=== PATIENT | male | born 1950 | race Caucasian/White ===

== ENCOUNTER 2021-01-11 06:35 | Outpatient (CLI) | payer MEDICARE, SELFPAY ==
--- NOTE | ~2021-01-11 | MR_ITS ---
EXAMINATION: MR shoulder RT wo con DATE: 01/11/2021 07:51 INDICATION: Complete rotator cuff tear or rupture. Right shoulder pain. TECHNIQUE: Magnetic resonance imaging (MRI) of the right shoulder was performed without intravenous c ontrast. Sequences included axial PD-weighted FS FSE, coronal oblique PD-weighted FS FSE and T2-weigh ishaan FS FSE, and sagittal oblique T2-weighted FS FSE and T1-weighted FSE. COMPARISON: Right shoulder radiographs 01/07/2021, right shoulder MRI 01/18/2018 FINDINGS: Coracoacromial arch: The acromion undersurface is curved in morphology (type II). There is moderate osteoarthritis of acro mioclavicular joint. There is moderate subacromial/subdeltoid bursitis. Rotator cuff: There is a full-thickness tear of supraspinatus and infraspinatus tendons measuring 3.2 cm anterior t o posterior by up to 3.3 cm proximal to distal. Teres minor tendon is normal. There is an interstitia l tear of distal subscapularis tendon. There is no asymmetric fatty atrophy of the rotator cuff muscl e bellies. Biceps tendon and glenoid labrum: There is a partial tear of proximal biceps tendon, which is medially displaced partially into the sub scapularis tendon tear. There is degeneration of the superior glenoid labrum without well-defined tea r. Fluid: There is a moderate-sized glenohumeral joint effusion. Bones/cartilage: There is cartilage surface irregularity of the glenoid and humeral head. IMPRESSION: 1. Full-thickness rotator cuff tear. 2. Partial tear of proximal biceps tendon, which is medially displaced partially into the subscapular is tendon tear. 3. Mild glenohumeral joint chondrosis. 4. Moderate-sized glenohumeral joint effusion and moderate subacromial/subdeltoid bursitis. 5. Moderate acromioclavicular joint osteoarthritis. Reviewed, dictated and finalized at location A. SCREEN CUTTER IMPRESSION: 1. Full-thickness rotator cuff tear. 2. Partial tear of proximal biceps tendon, which is medially displaced partiall y into the subscapularis tendon tear. 3. Mild glenohumeral joint chondrosis. 4. Moderate-sized glenohumeral joint effusion and moderate subacromial/subdelto id bursitis. 5. Moderate acromioclavicular joint osteoarthritis.
== END 2021-01-11 06:36 | disposition home or self-care (01) ==
PROVIDERS: PCP Internal Medicine; Visit Provider Orthopaedic Surgery
DX: M75.121 Complete rotator cuff tear or rupture of right shoulder, not specified as traumatic (principal); S46.211A Strain of muscle, fascia and tendon of other parts of biceps, right arm, initial encounter; M25.411 Effusion, right shoulder; M19.011 Primary osteoarthritis, right shoulder
CPT/HCPCS: 73221

== ENCOUNTER 2022-02-24 12:56 | Emergency (ER) | payer MEDICARE, SELFPAY ==
[2022-02-24 13:30] VITALS: BP 160/82; PULSE 75; RESP 16; TEMP 36.4; O2SAT 98
--- NOTE | 2022-02-24 14:29 | ED.WOUNDLAC ---
HPI - Wound/Laceration General Chief Complaint: Skin/Abscess/Foreign Body Stated Complaint: Left Hand Pain Time Seen by Provider: 02/24/22 14:30 Source: patient, RN notes reviewed and old records reviewed Mode of arrival: ambulatory Limitations: no limitations History of Present Illness HPI narrative: [age] year old male presents to the [facility] with a laceration to the left 5th finger. Occurred over 24 hours ago when he was meal prepping. States he did not have time to go to the ER in get stitches due to all of the food he needed to prep. Reports that his tetanus shot is under 5 years old Related Data Home Medications Medication Instructions Recorded Confirmed aspirin 81 mg tablet,delayed 81 mg PO DAILY 09/23/19 02/24/22 release (Jazz Low Dose Aspirin) Allergies Allergy/AdvReac Type Severity Reaction Status Date / Time Penicillins Allergy Unknown Unknown Verified 02/24/22 13:55 Review of Systems Review of Systems: All systems reviewed & are unremarkable except as noted in HPI and below Constitutional: Constitutional: Reports no additional constitutional complaints Eyes: Eyes: Reports no additional eye complaints ENT: Reports system reviewed and no additional complaints, except as documented Cardiovascular: Cardiovascular: Reports no additional cardiovascular complaints, Denies chest pain and Denies dyspnea Respiratory: Respiratory: Reports no additional respiratory complaints, Denies chest congestion, Denies cough and Denies dyspnea Gastrointestinal: Gastrointestinal: Reports no additional gastrointestinal complaints, Denies abdominal pain, Denies nausea and Denies vomiting Musculoskeletal: Musculoskeletal: Reports no additional musculoskeletal complaints Integumentary/Breasts: Skin/Breast: Reports as per HPI Neurologic: Reports system reviewed and no additional complaints, except as documented Psychiatric: Psychiatric: Reports no additional psychiatric complaints Allergic/Immunologic: Allergic/Immunologic: Reports no additional allergic/immunologic complaints [facility] Past Medical History Medical History Diabetes Hyperlipidemia Hypertension Insomnia Rotator cuff disorder Repair Surgical History Surgical History H/O vasectomy History of repair of rotator cuff (~02/04/13) Family History Family History Mother Diabetes mellitus Lewy body disease Father Patient's father is in good health Social History Social History (Reviewed 02/24/22 @ 20:53 by CORINNE Luu Social History: Caffeine-daily Smoking status: Former smoker Smoking end date: 03/02/98 Alcohol intake: current Alcohol use details: occasionally Lack of Transportation: No Lack of Food: Never True Current Housing: I Have Housing Concerned About Future Housing: No Difficulty Paying Gas/Electric Bills: No Difficulty Paying for Meds: No Currently Unemployed: No Education: Bachelor's Degree Difficulty w/ Childcare or Family Care: No Comments At the time of my signature, I reviewed and agree with the nursing past medical, surgical, social, and family history. There is no relevant family history pertinent to the patient complaint. Exam Const: General: cooperative, healthy appearing, comfortable, no acute distress, well developed, alert and well nourished Nutritional Appearance: well nourished Orientation/consciousness: patient oriented x3 Limitations: no limitations HENMT: Head: normal to inspection Ears: hearing grossly normal bilaterally and external ears normal Face/Nose/Sinus: Normal external nose present, Normal nares present, Normal nasal mucous membranes and turbinates present and normal facial exam Face and sinus: normal facial exam Mouth: Yes Normal oral and palatal mucosa present, Yes lip normal and Yes moist mucous
== END 2022-02-24 15:33 | disposition home or self-care (01) ==
PROVIDERS: Emergency Provider Nurse Practitioner; PCP Internal Medicine
DX: S61.217A Laceration without foreign body of left little finger without damage to nail, initial encounter (principal); X58.XXXA Exposure to other specified factors, initial encounter; Y93.G3 Activity, cooking and baking; E11.9 Type 2 diabetes mellitus without complications; E78.5 Hyperlipidemia, unspecified; I10 Essential (primary) hypertension; Z98.52 Vasectomy status; Z87.891 Personal history of nicotine dependence
CPT/HCPCS: 99213; G0463

== ENCOUNTER 2022-03-12 08:56 | Outpatient (CLI) | payer MEDICARE, SELFPAY ==
[2022-03-12 18:02] LABS: Basophils Absolute Auto 0.1 K/mm3 (0.0-0.1); Basophils Percent Auto 1.4 % (0.2-1.2); Eosinophils Absolute Auto 0.4 K/mm3 (0-0.3); Eosinophils Percent Auto 4.7 % (0-4.4); Hematocrit 44.3 % (42.0-52.0); Immature Granulocyte Absolute 0.04 K/mm3 (0.00-0.031); Immature Granulocyte Percent A 0.5 % (0-0.5); Lymphocytes Absolute Auto 2.31 K/mm3 (0.9-3.2); Lymphocytes Percent Auto 30.4 % (18.3-44.2); Mean Corpuscular HGB Conc 33.9 g/dl (32-36); Mean Corpuscular Hemoglobin 31.6 pg (26-34); Mean Corpuscular Volume 93.5 fl (80-100); Mean Platelet Volume 10.8 fl (7.4-10.4); Monocytes Absolute Auto 0.7 K/mm3 (0.1-0.6); Neutrophils Absolute Auto 4.1 K/mm3 (1.3-6.7); Platelet Count Result 295 k/mm3 (150-375); Red Blood Count 4.74 M/mm3 (4.6-6.20); Red Cell Distribution Width 12.3 % (11.5-14.5); White Blood Count 7.6 K/mm3 (4.5-10.0)
[2022-03-12 18:14] LABS: Alanine Aminotransferase 25 U/L (6-50); Albumin Level 4.3 g/dL (3.5-5.1); Alkaline Phosphatase 76 U/L (38-126); Anion Gap 9 mmol/L (8-16); Aspartate Amino Transferase 31 U/L (17-59); Bilirubin,Total 0.6 mg/dL (0.2-1.3); Blood Urea Nitrogen 24 mg/dL (9-20); Calcium 9.6 mg/dL (8.4-10.2); Carbon Dioxide 30 mmol/L (22-30); Chloride 99 mmol/L (98-107); Cholesterol 160 mg/dL (0-200); Estimated Glomerular Filt Rate > 60; Glucose 157 mg/dL (65-110); HDL Direct 31 mg/dL; Potassium 4.4 mmol/L (3.4-5.0); Sodium 138 mmol/L (137-145); Triglycerides 158 mg/dL (<150)
[2022-03-12 18:25] LABS: LDL Cholesterol Direct 85 mg/dL
[2022-03-12 18:37] LABS: Prostate Specific Antigen 1.7 ng/mL (< OR = 4.0)
[2022-03-12 21:43] LABS: Hemoglobin A1C 8.3 % (<5.7)
== END 2022-03-12 08:57 | disposition home or self-care (01) ==
LOC: ANHGOSHLAB 08:58
PROVIDERS: PCP Internal Medicine; Visit Provider Nurse Practitioner
DX: E11.9 Type 2 diabetes mellitus without complications (principal); Z12.5 Encounter for screening for malignant neoplasm of prostate
CPT/HCPCS: 36415; 80053; 80061; 83036; 84153; 85025; G0103

== ENCOUNTER 2022-04-14 08:29 | Outpatient (CLI) | payer MEDICARE, SELFPAY ==
--- NOTE | 2022-04-14 08:30 | ECG_ITS ---
Measurements Intervals [place] Rate: 68 P: 39 OR: 158 QRS: 20 QRSD: 96 T: 54 QT: 370 QTc: 396 Interpretive Statements SINUS RHYTHM INCOMPLETE RIGHT BUNDLE BRANCH BLOCK [90+ ms QRS DURATION, TERMINAL R IN V1/V2, 40+ ms S IN I/aVL/V4/V5/V6] ABNORMAL ECG NO PREVIOUS ECG AVAILABLE FOR COMPARISON Electronically Signed On 04-14-2022 12:11:25 ADMINISTRATIVE NURSING SUPERVISOR by Yg Wilson M.D.
== END 2022-04-14 08:30 | disposition home or self-care (01) ==
LOC: ANHSURGERY 08:34
PROVIDERS: PCP Nurse Practitioner; Visit Provider Orthopaedic Surgery
DX: I10 Essential (primary) hypertension (principal); Z01.818 Encounter for other preprocedural examination; I45.10 Unspecified right bundle-branch block
CPT/HCPCS: 93005

== ENCOUNTER 2022-04-18 00:21 | Day surgery (SDC) | payer MEDICARE, SELFPAY ==
[2022-04-10 11:08] VITALS: BMI 30.6
--- NOTE | 2022-04-10 11:20 | PC.NURSE ---
PRE-OP INSTRUCTIONS, PLEASE READ CAREFULLY Report to the Outpatient Waiting Room, entrance under the green pavilion located off [facility], at time _1000_ on date _04/18/22_. Planned Procedure Time: _1200_. Time changes happen often and if your time is changed the preop area will call you the afternoon before. - You and your visitor will be asked to self-screen and do not enter if you have any COVID symptoms. - Only one visitor is requested with a max of two and NO children visitors are allowed at this time. - The patient visitor may be requested to leave or wait in car when not with patient due to distancing restrictions. - A mask is optional within the hospital at this time. Patients may have clear liquids (water, carbonated beverages, clear teas, apple juice) until 3 hours prior to surgery (1000 AM) with a maximum of 20 ounces. - No food from midnight until time of surgery Take the following medications with a SIP of water the morning of surgery: _NONE_ DO NOT STOP ANY OF YOUR OTHER PRESCRIPTION MEDICATIONS PRIOR TO SURGERY ?EXCEPT THE FOLLOWING Medications to discontinue per DR. PICKERING - _ASPIRIN 7 DAYS PRIOR TO SURGERY, Date to take last dose 04/10/22_ Please no make-up, nail [place], hairspray, perfume, deodorant, or body powder the day of surgery. No jewelry (including any body piercings) or valuables the day of surgery, leave them at home. Please take a shower or bath the night before, or the morning of, surgery with an antibacterial soap. Wear comfortable, loose fitting clothing. - Jewelry must be removed prior to entering the operating room. Rings and piercings that are not removed may be cut off. - The hospital will not accept responsibility for valuables. - Please leave all valuables, including medications, at home the day of surgery. If you are going home after surgery, a licensed route driver must drive you home. - NO public transportation without another adult if you receive anesthesia. - We recommend that an adult stay with you for 24 hours following discharge. - We also recommend that you do not drive, make important decision, drink alcoholic beverages, or take any drugs that were not prescribed by your health care provider for at least 24 hours after your discharge time. Follow any additional instructions given to you from your surgeon. If you or anyone in your household have experienced Covid symptoms in the past week, please notify your surgeon or the nurse liaison at the phone number below for possible testing. Telephone instructions given to __PATIENT__and asked if any additional questions and then verbalized understanding. Patient advised to call surgeon office or pre surgery nurse liaison [phone] if any additional questions.
[2022-04-18] VITALS (10 sets, daily range): BP systolic 102–158; BP diastolic 58–78; PULSE 58–70; RESP 15–19; TEMP 36.2–36.4; O2SAT 91–99
[2022-04-18] MEDS: ACETAMINOPHEN 500 MG TABLET 1000 MG PO (10:20)
[2022-04-18] MEDS: LACTATED RINGERS 1,000 ML 30 ML IV CONT ×2 (10:33→14:40)
[2022-04-18] MEDS: KETOROLAC 15 MG/ML VIAL (*BKC) IV PUSH (10:35)
[2022-04-18 10:38] LABS: Glucose Point of Care 178 mg/dl (65-105)
--- NOTE | 2022-04-18 11:48 | WPDHPUPDATE1 ---
History and Physical Update Update Date/Time: 04/18/22 11:48 History and Physical has been reviewed, including an updated exam of the patient. There are NO changes in the patient's condition. Risks, benefits, and alternatives have been discussed and questions answered. Patient agrees to proceed with procedure.
--- NOTE | 2022-04-18 11:53 | WPDANESEPPF ---
Anes - Initial Pre Proc Eval Procedure: Operation Date: 04/18/22 12:00 Proposed Procedures p Arthroscopic Rotator Cuff Repair Right Shoulder with Subacromial Decompression - Garrett Romero MD Date/Time: 04/18/22 11:53 Surgeon: Garrett Romero MD Pre Op Diagnosis: rotator cuff tear right shoulder Patient Data Age: 71 Gender: M Height: 1.7 m Weight: 92.3 kg Last Vital Signs Temp 36.2 C L 04/18/22 10:00 Pulse 70 04/18/22 10:00 Resp 16 04/18/22 10:00 BP 158/76 H 04/18/22 10:00 Pulse Ox 99 04/18/22 10:00 O2 Del Method Room Air 04/18/22 10:00 Allergies Allergy/AdvReac Type Severity Reaction Status Date / Time Penicillins Allergy Unknown Unknown-SISTER Verified 04/18/22 10:16 WITH CERAMIC TILE INSTALLATION HELPER REACTON TO [facility] Home Medications Medication Instructions Recorded Confirmed Type aspirin 81 mg tablet,delayed 81 mg PO DAILY 09/23/19 04/10/22 History release (Jazz Low Dose Aspirin) blood sugar diagnostic (OneTouch #100 ea 05/03/21 04/10/22 Rx Verio test strips) blood-glucose meter (OneTouch #1 ea 05/03/21 04/10/22 Rx Verio Flex Meter) losartan 100 mg tablet 100 mg PO DAILY #90 tabs 05/07/21 04/18/22 Rx sildenafil (pulm.hypertension) 20 20 mg PO DAILY PRN sexual activity 06/14/21 04/10/22 Rx mg tablet #30 tabs sitagliptin phosphate 100 mg See Rx Instructions .Route 10/29/21 04/18/22 Rx tablet (Januvia) .COMPLEX #90 tabs atorvastatin 20 mg tablet See Rx Instructions .Route 10/31/21 04/18/22 Rx .COMPLEX #90 tabs hydrochlorothiazide 12.5 mg tablet See Rx Instructions .Route 12/09/21 04/18/22 Rx .COMPLEX #90 tabs metformin 500 mg tablet See Rx Instructions .Route 12/23/21 04/18/22 Rx .COMPLEX #360 tabs diphenhydramine 25 1 tablet PO QHS PRN Pain 03/12/22 04/18/22 History mg-acetaminophen 500 mg tablet (Tylenol PM Extra Strength) dulaglutide 1.5 mg/0.5 mL 1.5 mg (0.5 mL) subcut WEEKLY #2 mL 03/13/22 04/18/22 Rx subcutaneous pen injector (Trulicity) zolpidem 5 mg tablet 5 mg PO DAILY PRN insomnia #30 tabs 03/14/22 04/18/22 Rx Laboratory Tests 04/18/22 10:32 POC Capillary Glucose 178 mg/dl H mg/dl (65-105) ECG: Date of Service: 04/14/22 Procedure(s): CA 12 lead EKG Accession Number(s): [id number] cc: ~ ? Measurements Intervals? [place]? Rate: ? 68 ? P:? 39 ID: ? 158? QRS:? 20 QRSD: ? 96 ? T:? 54 QT: ? 370? QTc:? 396? Interpretive Statements SINUS RHYTHM INCOMPLETE RIGHT BUNDLE BRANCH BLOCK [90+ ms QRS DURATION, TERMINAL R IN V1/V2, 40+ ms S IN I/aVL/V4/V5/V6] ABNORMAL ECG NO PREVIOUS ECG AVAILABLE FOR COMPARISON Electronically Signed On 04-14-2022 12:11:25 CULLET TRUCKER by gY Wilson M.D. Patient hx anesthesia problems: none Family hx anesthesia problems: none Results Review: All pre-operative results and documents have been reviewed as part of the pre-operative evaluation. [facility] Past Medical History Medical History Diabetes Hyperlipidemia Hypertension Insomnia Rotator cuff disorder Repair Surgical History Surgical History H/O vasectomy History of repair of rotator cuff (~02/04/13) Family History Family History Mother Diabetes mellitus Lewy body disease Father Patient's father is in good health Social History Social History Social History: Caffeine-daily Smoking packs per day: 1.5 Smoking cigarettes per day: 30.0 Years smoked: 20 Smoking pack-years: 30.00 Gabriela
--- NOTE | 2022-04-18 12:01 | WPDANESPNB ---
Anes - Peripheral Nerve Block Date/Time: 04/18/22 12:01 I have discussed with the patient/family/POA the placement of a peripheral nerve block for post-operative pain management, including associated risks, benefits, complications, and side effects. Alternative methods of post-operative analgesia were detailed. Questions were solicited and answers provided to the satisfaction of the patient/family/POA. Time-Out: A pre-procedural Time-Out was completed immediately before starting the procedure and confirmed: Patient Identification, Site, Procedure, Patient Position and the Availability of Requisite Equipment. Clinical Indications: Acute post-operative pain management requested by the operative surgeon. Nerve Block Insertion Note Anes-nerve block: supraclavicular right Patient position: supine Skin prep: chlorhexidine Needle: 22 gauge, stimulating, insulated echogenic needle. Needle length: 80 mm Technique: ultrasound (in plane) Injectate: bupivacaine 0.25% with epi 5 mcg/ml (20cc) Observations: tolerated well Complications: none Procedure start time:: 1205 Procedure end time:: 1210
[2022-04-18] MEDS: ceFAZolin 2 GM/D5W 50 ML 2 GM/50 ML BAG IVPB (12:17)
[2022-04-18 15:15] LABS: Glucose Point of Care 210 mg/dl (65-105)
--- NOTE | 2022-04-18 16:02 | W.PM.PROC2 ---
Procedure Note - Detailed Date of Procedure 04/18/22 Pre-op Diagnosis Rotator cuff tear right shoulder Post-op Diagnosis Other (1. Massive rotator cuff tear right shoulder 2. Subacromial impingement 3. Biceps tendinosis 4. Degenerative labral tear) Procedure Performed Right shoulder 1. Arthroscopic rotator cuff repair 2. Arthroscopic subacromial decompression 3. Arthroscopic biceps tenodesis 4. Arthroscopic labral debridement Surgeon Garrett Romero MD Anesthesia General and Regional ( interscalene block) Findings Massive retracted supraspinatus and infraspinatus tear. Low-grade upper border subscapularis tear. Biceps tendinosis with partial rupture. Partial rotator cuff repair accomplished; with the subscapularis and infraspinatus repaired. The supraspinatus was scarred and severely retracted with almost no mobility, despite releases. The posterior rotator cuff infraspinatus was only minimally mobile but it was possible to return to the posterior tuberosity and be repaired. Two suture anchors and 3 sutures created a nice posterior cuff repair. One suture anchor was used to repair the upper subscapularis with the horizontal mattress suture and to tenodesis the biceps tendon with the loop and tack system. Description of Procedure Preoperative antibiotics were given. An interscalene block was administered in the preoperative area. The patient was bought brought to the operating room. A general anesthetic was administered. The patient was carefully positioned in the beach chair position. The head and neck were carefully positioned. The non operative extremity was also carefully positioned. The shoulder was prepped and draped in the usual sterile fashion. Examination was performed. Standard posterior and anterior arthroscopic portals were established. Inflow achieved with the arthroscopic pump using saline and epinephrine. The glenohumeral joint was carefully inspected. Glenohumeral cartilage was good. There was extensive fraying of the anterior labrum. This was debrided. A large retracted rotator cuff tear was identified. The subscapularis was significantly torn with some splitting of the fibers. Only the upper subscapularis was involved. Biceps was partially ruptured and flattened with significant splitting of the fibers. It was elected to proceed with repair of the upper subscapularis and the biceps tenodesis with a suture anchor. Horizontal mattress for the subscapularis and the loop intact with the biceps. The biceps was released from the superior labrum. Attention was turned to the subacromial space. A complete bursectomy was performed. The rotator cuff and footprint were lightly debrided. The tear was assessed. It was very large and severely retracted despite significant releases the tear did not reduce. Due to the anterior tissues being slung together quite nicely at the subscapularis and biceps area. It did not appear that an interval slide would reliably mobilize the supraspinatus. It was elected to perform a partial repair of the posterior rotator cuff at the infraspinatus which mobilized better and laid back down over the tuberosity nicely. Only a modest acromioplasty was performed with simply flattening of the rough areas and tapering the undersurface of the acromion nicely. The CA ligament was left intact. A corkscrew 4 points I have been 5 mm anchor was placed at the tuberosity followed by a 5.5 mm anchor. Two suture tapes were placed at the most posterolateral anchor and the 2nd anchor a single suture tape was placed. These were passed in an antegrade fashion. The sutures were tied arthroscopically. The arthroscopic instruments were removed. The wounds were closed with 3-0 Monocryl subcuticular suture and steri strips. There were no complications. A sling was applied and the patient brought to the recovery room. Implants Arthrex SwiveLock 4.75 mm anchor anterior. Corkscrew 4.75 and 5.5 posterior. Estimated Blood
== END 2022-04-18 16:45 | disposition home or self-care (01) ==
PROVIDERS: PCP Nurse Practitioner; Visit Provider Orthopaedic Surgery
PROC: (CPT 29805; principal; 2022-04-18 12:00)
DX: S46.011A Strain of muscle(s) and tendon(s) of the rotator cuff of right shoulder, initial encounter (principal); M75.21 Bicipital tendinitis, right shoulder; M75.41 Impingement syndrome of right shoulder; M75.81 Other shoulder lesions, right shoulder; W01.0XXA Fall on same level from slipping, tripping and stumbling without subsequent striking against object, initial encounter; G89.18 Other acute postprocedural pain; E11.9 Type 2 diabetes mellitus without complications; E78.5 Hyperlipidemia, unspecified; I10 Essential (primary) hypertension; G47.00 Insomnia, unspecified; Z79.82 Long term (current) use of aspirin; Z79.84 Long term (current) use of oral hypoglycemic drugs; Z79.899 Other long term (current) drug therapy; Z87.891 Personal history of nicotine dependence; E66.9 Obesity, unspecified; Z68.31 Body mass index [BMI] 31.0-31.9, adult
CPT/HCPCS: 29827; 29828; 29826; 64415; 82948; A4565; A9270; C1713; J0330; J0690; J1100; J1885; J2250; J2405; J2704; J2710; J3010; J7120

== ENCOUNTER 2022-05-13 08:32 | Outpatient (CLI) | payer MEDICARE, SELFPAY ==
[2022-05-13 20:44] LABS: Hemoglobin A1C 7.5 % (<5.7)
== END 2022-05-13 08:33 | disposition home or self-care (01) ==
LOC: ANHGOSHLAB 08:33
PROVIDERS: PCP Nurse Practitioner; Visit Provider Nurse Practitioner
DX: E11.9 Type 2 diabetes mellitus without complications (principal)
CPT/HCPCS: 36415; 83036

== ENCOUNTER 2022-11-07 08:07 | Outpatient (CLI) | payer MEDICARE, SELFPAY ==
[2022-11-07 13:15] LABS: Hemoglobin A1C 7.4 % (<5.7)
== END 2022-11-07 08:08 | disposition home or self-care (01) ==
PROVIDERS: PCP Internal Medicine; Visit Provider Nurse Practitioner
DX: E11.9 Type 2 diabetes mellitus without complications (principal)
CPT/HCPCS: 36415; 83036

== ENCOUNTER 2023-04-13 08:30 | Outpatient (CLI) | payer MEDICARE, SELFPAY ==
[2023-04-13 19:12] LABS: Basophils Absolute Auto 0.1 K/mm3 (0.0-0.1); Basophils Percent Auto 1.1 % (0.2-1.2); Eosinophils Absolute Auto 0.5 K/mm3 (0-0.3); Eosinophils Percent Auto 5.4 % (0-4.4); Hematocrit 40.7 % (42.0-52.0); Hemoglobin 13.9 g/dL (14.0-18.0); Immature Granulocyte Absolute 0.12 K/mm3 (0.00-0.031); Immature Granulocyte Percent A 1.3 % (0-0.5); Lymphocytes Percent Auto 25.8 % (18.3-44.2); Mean Corpuscular HGB Conc 34.2 g/dl (32-36); Mean Corpuscular Hemoglobin 31.5 pg (26-34); Mean Corpuscular Volume 92.3 fl (80-100); Mean Platelet Volume 10.7 fl (7.4-10.4); Monocytes Absolute Auto 0.8 K/mm3 (0.1-0.6); Monocytes Percent Auto 8.9 % (2.6-8.5); Neutrophils Absolute Auto 5.1 K/mm3 (1.3-6.7); Neutrophils Percent Auto 57.5 % (45.5-73.1); Platelet Count Result 301 k/mm3 (150-375); Red Blood Count 4.41 M/mm3 (4.6-6.20); Red Cell Distribution Width 11.9 % (11.5-14.5); White Blood Count 8.9 K/mm3 (4.5-10.0)
[2023-04-13 20:51] LABS: Creatinine Urine 165.2 mg/dL
[2023-04-13 20:58] LABS: MALB Creatinine Ratio 22.7 mg/g (0-30); Microalbumin Urine Random 37.5 mg/L (0-16.7)
[2023-04-13 21:04] LABS: Alanine Aminotransferase 30 U/L (6-50); Albumin Level 3.7 g/dL (3.5-5.1); Alkaline Phosphatase 107 U/L (38-126); Anion Gap 5 mmol/L (8-16); Aspartate Amino Transferase 34 U/L (17-59); Bilirubin,Total 0.4 mg/dL (0.2-1.3); Blood Urea Nitrogen 16 mg/dL (9-20); Calcium 9.5 mg/dL (8.4-10.2); Carbon Dioxide 28 mmol/L (22-30); Chloride 101 mmol/L (98-107); Estimated Glomerular Filt Rate > 60; Glucose 214 mg/dL (65-110); Potassium 4.5 mmol/L (3.4-5.0); Sodium 134 mmol/L (137-145)
[2023-04-13 21:08] LABS: Prostate Specific Antigen 1.7 ng/mL (< OR = 4.0)
[2023-04-13 21:33] LABS: Hemoglobin A1C 8.8 % (<5.7)
== END 2023-04-13 08:31 | disposition home or self-care (01) ==
PROVIDERS: Nurse Practitioner; PCP Internal Medicine; Visit Provider Clinical Nurse Specialist
DX: E11.9 Type 2 diabetes mellitus without complications (principal); Z12.5 Encounter for screening for malignant neoplasm of prostate
CPT/HCPCS: 36415; 80053; 82043; 82607; 83036; 84153; 85025; G0103

== ENCOUNTER 2023-08-13 08:13 | Outpatient (CLI) | payer MEDICARE, SELFPAY ==
[2023-08-13 14:31] LABS: Basophils Absolute Auto 0.1 K/mm3 (0.0-0.1); Basophils Percent Auto 0.9 % (0.2-1.2); Eosinophils Absolute Auto 0.3 K/mm3 (0-0.3); Eosinophils Percent Auto 3.3 % (0-4.4); Hemoglobin 14.1 g/dL (14.0-18.0); Immature Granulocyte Absolute 0.06 K/mm3 (0.00-0.031); Immature Granulocyte Percent A 0.7 % (0-0.5); Lymphocytes Absolute Auto 2.13 K/mm3 (0.9-3.2); Lymphocytes Percent Auto 23.3 % (18.3-44.2); Mean Corpuscular HGB Conc 32.8 g/dl (32-36); Mean Corpuscular Hemoglobin 31.1 pg (26-34); Mean Corpuscular Volume 94.7 fl (80-100); Mean Platelet Volume 11.1 fl (7.4-10.4); Monocytes Percent Auto 10.6 % (2.6-8.5); Neutrophils Absolute Auto 5.6 K/mm3 (1.3-6.7); Neutrophils Percent Auto 61.2 % (45.5-73.1); Platelet Count Result 249 k/mm3 (150-375); Red Blood Count 4.54 M/mm3 (4.6-6.20); Red Cell Distribution Width 12.1 % (11.5-14.5); White Blood Count 9.1 K/mm3 (4.5-10.0)
[2023-08-13 16:09] LABS: Iron 117 ug/dL (49-181)
[2023-08-13 16:26] LABS: Percent Iron Saturation 34 % (20-50)
[2023-08-13 16:31] LABS: Alanine Aminotransferase 17 U/L (6-50); Albumin Level 4.5 g/dL (3.5-5.1); Alkaline Phosphatase 78 U/L (38-126); Anion Gap 9 mmol/L (4-12); Aspartate Amino Transferase 51 U/L (17-59); Bilirubin,Total 0.8 mg/dL (0.2-1.3); Blood Urea Nitrogen 23 mg/dL (9-20); Calcium 9.9 mg/dL (8.4-10.2); Carbon Dioxide 27 mmol/L (22-30); Chloride 101 mmol/L (98-107); Cholesterol 113 mg/dL (0-200); Estimated Glomerular Filt Rate > 60; Glucose 149 mg/dL (65-110); HDL Direct 29 mg/dL; Sodium 137 mmol/L (137-145); Triglycerides 99 mg/dL (<150)
[2023-08-13 16:42] LABS: LDL Cholesterol Direct 68 mg/dL
== END 2023-08-13 08:14 | disposition home or self-care (01) ==
PROVIDERS: PCP Internal Medicine; Visit Provider Nurse Practitioner
DX: D64.9 Anemia, unspecified (principal); E11.9 Type 2 diabetes mellitus without complications
CPT/HCPCS: 36415; 80053; 80061; 82728; 83036; 83540; 83550; 85025

== ENCOUNTER 2024-02-17 08:26 | Outpatient (CLI) | payer MEDICARE, SELFPAY ==
[2024-02-17 19:05] LABS: Alanine Aminotransferase 15 U/L (6-50); Albumin Level 3.9 g/dL (3.5-5.1); Alkaline Phosphatase 91 U/L (38-126); Anion Gap 5 mmol/L (4-12); Aspartate Amino Transferase 33 U/L (17-59); Bilirubin,Total 0.6 mg/dL (0.2-1.3); Blood Urea Nitrogen 15 mg/dL (9-20); Calcium 9.3 mg/dL (8.4-10.2); Carbon Dioxide 28 mmol/L (22-30); Chloride 101 mmol/L (98-107); Estimated Glomerular Filt Rate > 60; Glucose 204 mg/dL (65-110); Sodium 134 mmol/L (137-145)
[2024-02-17 20:55] LABS: Hemoglobin A1C 8.9 % (<5.7)
[2024-02-17 21:48] LABS: Prostate Specific Antigen 1.4 ng/mL (< OR = 4.0)
== END 2024-02-17 08:27 | disposition home or self-care (01) ==
LOC: ANHGOSHLAB 08:28
PROVIDERS: PCP Internal Medicine; Visit Provider Nurse Practitioner
DX: E11.9 Type 2 diabetes mellitus without complications (principal); Z12.5 Encounter for screening for malignant neoplasm of prostate
CPT/HCPCS: 36415; 80053; 83036; 84153; G0103

== ENCOUNTER 2024-07-11 08:55 | Outpatient (CLI) | payer MEDICARE, SELFPAY ==
--- OUTSIDE RECORDS SUMMARY | 2024-07-11 09:04 | XMS_ITS | Encounter Summary ---
Author Organization [facility] Address [address] [place] [address] Care Team Providers Care Broadcaster Name Role Phone Hero Monroy DO Primary Care Provider Encounter Details Date Type Department Care Team (Late st Contact Info) Description 02/27/2022 Telephone [facility] [address] [place] [address], [place] [id number] Ramez Andre MD [address] [place] [address] [address] [place] [address] Social History Tobacco Use Types Packs/Day Years Used Date Smoking Tobacco: Former Cigarettes Q uit: 01/30/1999 Smokeless Tobacco: Never Alcohol Use Standard Drinks/Week Comments Yes 0 (1 standard drink = 0.6 oz pur e alcohol) Sex and Gender Information Value Date Recorded Sex Assigned at Not on file Legal Sex Male 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 Gender Identity Not on file Sexual Orientation Not on file documented as of this encounter Miscellaneous Notes * Telephone Encounter - Gris Maxwell - 02/27/2022 10:15 AM CST Current Provider name: [facility] Reason for call: PT STATES THAT THE BUMP ON HIS SCALP DIDN'T GO AWAY AFTER FREEZING IT AND WANTS TOKNOW DOES HE HAVE TO COME IN TO GET IT CHECKED OUT Patient Call Back number: [phone] HAUL YOUTH SUPERVISOR documented in this encounter Plan of Treatment Upcoming Encounters Date Type Department Care Team (Late st Contact Info) Description 08/09/2024 1:00 PM CDT Office Visit [facility] [address] [facility], [place] [id number] Dannie Ny PA-C [address] [place] [id number] documented as of this encounter Visit Diagnoses Not on filedocumented in this encounter Care Teams Broadcaster Relationship Specialty Start Date End Date Hero Monroy DO PCP - General 10/04/15 documented as of this encounter
--- OUTSIDE RECORDS SUMMARY | 2024-07-11 09:04 | XMS_ITS | Continuity of Care Document ---
Author Organization [facility] Address [address] [place] [address] [address] [facility] [address] [place] [address] Phone Care Team Providers Care Senior Ruby Developer Name Role Phone Mccarty OD, Ole Unavailable Unavailable Advance Directives Directive Yes / No Effective Date File Name No Information Encounters Encounter Description Practice Location Reason(s) For Visit Diagnoses Date Provider Providers Copied on Encounter [facility], [address], [place], [place], [id number], [place] tel:[phone] [facility] No Information 4-200 5 Mccarty OD Ole. [address] , [address], [place], [address], [place]. tel:[phone] Family History Family Member Type Diagnosis Age At Onset No Information Payers Payer name Insurance type Covered republican ID Authoriza tion(s) No Information Social History Type Description Quantity Date Captured Comments Sex Male Smoking Status No Information Chief Complaint And Reason For Visit No Information Reason For Referral Reason For Referral No Information History Of Present Illness Encounter Date Complaint History Of Prese nt Illness No Information Functional Status Date Functional Assessmen t No Information Instructions Date Instruction Additional Infor mation No Information Assessments Type Assessment Date No Information Patient Care Teams Name Effective Dates (start - stop) Status Members No Information
--- OUTSIDE RECORDS SUMMARY | 2024-07-11 09:04 | XMS_ITS | Clinical Summary ---
Author Organization [facility] Your Office Agent Address [address] [facility] [place] [address] Care Team Providers Care Battery Tester And Repairer Name Role Phone Hero Monroy DO Primary Care Provider Source Comments [facility],non-owned Affiliates and Associated Physician Practices is amultiple site organization consisting of ambulatory clinics and hospital sitesin [place], [place], [place] and [place]. This disclosure is being madepursuant to the Care Everywhere program and may not contain all information available regarding this patient. Last updated 17.[facility] Your Office Agent Allergies Active Allergy Reactions Criticality Noted Date Comments Penicillins Other Low 01/18/2016 May have problems Medications * Be aware that medications may not be up to date on this document. Alwaysverify current medications with the patient. hydroCHLOROthia zide (HYDRODIURIL) 25 MG tablet Take 1 (one) tablet by mouth once daily 3 12/05/2015 Active SITagliptin (JANUVIA) 100 MG tablet Take 1 (one) tablet by mouth once daily 3 12/05/2015 Active metFORMIN (GLUCOPHAGE) 500 MG tablet 1 (one) tablet 2 times daily with morning and evening meal 2 11/01/2015 Active losartan (COZAAR) 100 MG tablet Take 1 (one) tablet by mouth once daily 02/13/2019 Active atorvastatin (LIPITOR) 20 MG tablet Take 1 (one) tablet by mouth once daily 12/26/2019 Active sildenafil (REVATIO) 20 MG tablet TAKE 1 TO 3 TABLETS BY MOUTH NEEDED 30 MINUTES BEFORE SEXUAL ACTIVITY. MAX 5 TABLETS DAILY. 06/14/2020 Active zolpidem (AMBIEN) 5 MG tablet TAKE 1 TABLET BY MOUTH DAILY NEEDED FOR INSOMNIA 02/16/2021 Active hydroCHLOROthia zide 12.5 MG Take 1 (one) tablet by mouth once daily 09/08/2023 Active Rybelsus 14 MG tablet 04/02/2023 Active fluorouracil (Efudex) 5 % creamIndication s:Actinic keratosis Apply to frontal scalp, forehead twice daily for two weeks. Apply Aquaphor or Vaseline 15-20 minutes after use. 40 g 02/16/2024 Active Active Problems Problem Noted Date Diagnosed Date Multiple benign melanocytic nevi of upper extremity, lower extremity, and trunk 02/17/2020 Melanocytic nevi of trunk 01/18/2016 Actinic keratosis 01/18/2016 Seborrheic keratoses, inflamed 01/18/2016 Solar lentiginosis 01/18/2016 Immunizations Immunization Administration Dates Next Due INFLUENZA VACCINE 11/18/2021,,11/19/2018,2017 INFLUENZA VACCINE, HIGH-DOSE , QUADR. (FLUZONE HIGH-DOSE QUADRIVALENT; 65Y+), 0.7 ML (HD-IIV4) 01/18/2020,11/18/2018 Zoster Hzv Vacc Recombinant Inj Im 04/05/2018 Family History Medical History Relation Name Comments CVA Neg Hx Cancer - Breast Neg Hx Cancer - Other Neg Hx Cancer - Skin, Melanoma Neg Hx Cancer - Skin, Non Melanoma Neg Hx Eczema Neg Hx Hemophilia Neg Hx Psoriasis Neg Hx Social History Tobacco Use Types Packs/Day Years Used Date Smoking Tobacco: Former Cigarettes Q uit: 01/30/1999 Smokeless Tobacco: Never Alcohol Use Standard Drinks/Week Comments Yes 0 (1 standard drink = 0.6 oz pur e alcohol) Sex and Gender Information Value Date Recorded Sex Assigned at Not on file Legal Sex Male 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 Gender Identity Not on file Sexual Orientation Not on file Plan of Treatment Upcoming Encounters Date Type Department Care Team (Late st Contact Info) Description 08/09/2024 1:00 PM CDT Office Visit [facility] - Dermatology [address] [facility] [place] [phone] Dannie Ny, PAKarlC [address] [place] [phone] Health Maintenance Due Date Last Done Comments COLOGUARD (AGES 45-75) - COLON CA SCREENING 1950 COLON MONITORING 1950 COLONOSCOPY - COLON CA SCREENING 1950 CT COLONOGRAPHY - COLON CA SCREENING 1950 Colorectal Cancer Screening 1950 FIT - COLON CA SCREENING 1950 FLEX SIG - COLON CA SCREENING 1950 MEDICARE AWV 12 MONTHS 1950 HEPATITIS C SCREENING 05/20/1968 DTAP/TDAP/TD VACCINES (1 - Tdap) 1969 PNEUMOCOCCAL VACCINE 50+ (1 of 1 - PCV) 2000 AAA SCREENING 05/26/2015 ZOSTER VACCINE (2 of 2) 05/31/2018 04/05/2018 COVID-19 VACCINE (1 - season) 2023 DEPRESSION SCREENING 03/02/2024 INFLUENZA VACCINE (Season Ended) 2024 11/18/2021, 11/24/2020, 01/18/2020, Additional history exists Respiratory Syncytial Virus (RSV) Vaccine Pt: or over 60 yrs (1 - 1-dose 75+ series) 2025 HEPATITIS B VACCINE Aged Out No longe r eligible based on patient's age to complete this topic HIB VACCINE Aged Out No longer eligi ble based on patient's age to complete this topic HPV VACCINE Aged Out No longer eligi ble based on patient's age to complete this topic MENINGOCOCCAL (Group B) VACCINE SHARED DECISION-MAKING Aged Out No longer eligible based on patient's age to complete this topic MENINGOCOCCAL GROUPS A/C/Y/W VACCINE Aged Out No longer eligible based on patient's age to complete this topic Insurance JO[facility] MEDICARE Care Teams Battery Tester And Repairer Relationship Specialty Start Date End Date Hero Monroy DO PCP - General 10/04/15
[2024-07-11 22:13] LABS: Hemoglobin A1C 9.7 % (<5.7)
== END 2024-07-11 08:56 | disposition home or self-care (01) ==
PROVIDERS: PCP Internal Medicine; Visit Provider Nurse Practitioner
DX: E11.9 Type 2 diabetes mellitus without complications (principal)
CPT/HCPCS: 36415; 83036

== ENCOUNTER 2024-11-03 08:56 | Outpatient (CLI) | payer MEDICARE, SELFPAY ==
--- OUTSIDE RECORDS SUMMARY | 2024-11-03 09:10 | XMS_ITS | Encounter Summary ---
Author Organization [facility] Address [address] [facility] [place] [address] Care Team Providers Care Chute Operator Name Role Phone Hero Monroy DO Primary Care Provider Encounter Details Date Type Department Care Team (Late st Contact Info) Description 02/27/2022 Telephone [facility] [address] [place] [address], [place] [phone] Ramez Andre MD [address] [place] [address] [address] [place] [address] Social History Tobacco Use Types Packs/Day Years Used Date Smoking Tobacco: Former Cigarettes Q uit: 01/30/1999 Smokeless Tobacco: Never Alcohol Use Standard Drinks/Week Comments Yes 0 (1 standard drink = 0.6 oz pur e alcohol) Sex and Gender Information Value Date Recorded Sex Assigned at Not on file 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 Gender Identity Not on file Sexual Orientation [...] IT CHECKED OUT Patient Call Back number: [phone] EYOR FEEDER OFFBEARER documented in this encounter Plan of Treatment Upcoming Encounters Date Type Department Care Team (Late st Contact Info) Description 02/14/2025 1:00 PM CONVEYOR FEEDER OFFBEARER Office Visit [facility] - Dermatology [address] [facility] [place] [phone] Dannie Ny PARomán [address] [place] [phone] documented as of this encounter Visit Diagnoses Not on filedocumented in this encounter Care Teams Chute Operator Relationship Specialty Start Date End Date Hero Monroy DO PCP - General 10/04/15 documented as of this encounter
--- OUTSIDE RECORDS SUMMARY | 2024-11-03 09:10 | XMS_ITS | Clinical Summary ---
Author Organization [facility] [employer] Address [address] [facility] [place] [address] Care Team Providers Care Ink Grinder Name Role Phone Hero Monroy DO Primary Care Provider [phone] Source Comments [facility],non-owned Affiliates and Associated Physician Practices is amultiple site organization consisting of ambulatory clinics and hospital sitesin [place], [place], [place] and [place]. This disclosure is being madepursuant to the Care Everywhere program and may not contain all information available regarding this patient. Last updated 17.[facility] [employer] Allergies Active Allergy Reactions Criticality Noted Date Comments Penicillins Other Low 01/18/2016 May have problems Medications * Be aware that medications may not be up to date on this document. Alwaysverify current medications with the patient. SITagliptin (JANUVIA) 100 MG tablet Take 1 [...] tablet by mouth once daily 09/08/2023 Active fluorouracil (Efudex) 5 % creamIndication s:Actinic keratosis Apply to frontal scalp, forehead twice daily for two weeks. Apply Aquaphor or Vaseline 15-20 minutes after use. 40 g 02/16/2024 Active Semaglutide (OZEMPIC, 0.25 OR 0.5 MG/DOSE, SC) 07/14/2024 Active traMADol (Ultram) 50 MG tablet Take 1 (one) tablet by mouth every 6 hours as needed pain 08/01/2024 Active Active Problems Problem Noted Date Diagnosed Date Multiple benign melanocytic nevi of upper extremity, lower extremity, and trunk 02/17/2020 Melanocytic nevi of trunk 01/18/2016 Actinic keratosis 01/18/2016 Seborrheic keratoses, inflamed 01/18/2016 Solar lentiginosis 01/18/2016 Encounters Date Type Department Care Team Description 08/09/2024 1:00 PM CDT Office Visit [facility] - Dermatology [address] [place] [phone] Dannie Ny, PARomán Actinic keratosis (Primary Dx); Lentigines; Melanocytic nevi of trunk; Seborrheic keratoses; Hx of nonmelanoma skin cancer 08/09/2024 Travel from Last 3 Months Immunizations Immunization Administration Dates Next Due INFLUENZA [...] on file 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 Gender Identity Not on file Sexual Orientation Not on file Plan of Treatment Upcoming Encounters Date Type Department Care Team (Niki st Contact Info) Description 02/14/2025 1:00 PM SINGLE POINTED OPERATOR Office Visit [facility] - Dermatology [address] [facility] [place] [address] Dannie Ny, PAKarlC [address] [place] [phone] Health Maintenance Due Date Last Done Comments [...] 2) 05/31/2018 04/05/2018 COVID-19 VACCINE (1 - 2023- season) 2023 DEPRESSION SCREENING 03/02/2024 INFLUENZA VACCINE (#1) 2024 2, 11/24/2020, 01/18/2020, Additional history exists Respiratory Syncytial [...] on patient's age to complete this topic Procedures Procedure Name Priority Date/Time Associated Diagnosis Comments OH DESTROY PREMALIG LESION, 2-14 Routine 08/09/2024 1:22 PM CDT Actinic keratosis OH DESTROY PREMALIG LESION, 1ST LESION Routine 08/09/2024 1:22 PM CDT Actinic keratosis from Last 3 Months Results * OH DESTROY PREMALIG LESION, 1ST LESION, OH DESTROY PREMALIG LESION, 2-14 (08/09/2024 1:22 PM CDT) Narrative Shaggy Hodges MD - 08/09/2024 1:22 PM CDT Shaggy Hodges MD 08/17/2024 1:20 PM Derm - Destruction Pre-malignant Date/Time: 08/09/2024 1:22 PM Performed by: Dannie Ny PA-C Authorized by: Dannie Ny PA-C Consent given by: patient Consent type: verbal Risks discussed with patient: scar formation, skin color change, need for further testing/treatment, pain, blistering and infection. Consent type: verbal Procedure details: Location information Scalp x 1, forehead x 2, L cheek x 1, R cheek x 1, R ear x 1, R arm x 1, R leg x 1, L leg x 2 Number of standard lesions: 10 Total number of lesions: 10 Destruction method: cryotherapy Cryotherapy cycles: 1 Cryotherapy time per cycle (seconds): 5-7 Complications: none Wound care discussed with patient? yes Dannie Ny PA-C PROCEDURE/MINOR SURGICAL ORDERA BLES Final Result from Last 3 Months Insurance JOANA [employer] MEDICARE Care Teams Ink Grinder Relationship Specialty Start Date End Date Hero Monroy DO PCP - General 10/04/15
[2024-11-03 13:14] LABS: Hematocrit 41.2 % (42.0-52.0); Hemoglobin 13.4 g/dL (14.0-18.0); Immature Granulocyte Percent A 0.5 % (0-0.5); Lymphocytes Absolute Auto 2.47 K/mm3 (0.9-3.2); Mean Corpuscular HGB Conc 32.5 g/dl (32-36); Mean Corpuscular Hemoglobin 30.1 pg (26-34); Mean Corpuscular Volume 92.6 fl (80-100); Nucleated Red Blood Cells Absolute Auto 0.000 K/mm3 (0.0-0.012); Nucleated Red Blood Cells Perc 0.0 % (0.0-0.2); Platelet Count Result 246 k/mm3 (150-375); Red Blood Count 4.45 M/mm3 (4.6-6.20); White Blood Count 6.4 K/mm3 (4.5-10.0)
[2024-11-03 13:26] LABS: Hemoglobin A1C 8.5 % (<5.7)
[2024-11-03 13:50] LABS: Alanine Aminotransferase 14 U/L (6-50); Albumin Level 4.2 g/dL (3.5-5.1); Alkaline Phosphatase 80 U/L (38-126); Anion Gap 9 mmol/L (4-12); Aspartate Amino Transferase 32 U/L (17-59); Bilirubin,Total 0.6 mg/dL (0.2-1.3); Blood Urea Nitrogen 23 mg/dL (9-20); Calcium 9.4 mg/dL (8.4-10.2); Carbon Dioxide 25 mmol/L (22-30); Chloride 100 mmol/L (98-107); Cholesterol 123 mg/dL (0-200); Estimated Glomerular Filt Rate > 60; Glucose 189 mg/dL (65-110); HDL Direct 28 mg/dL; Potassium 3.9 mmol/L (3.4-5.0); Sodium 134 mmol/L (137-145); Total Protein 7.1 g/dL (6.3-8.2); Triglycerides 118 mg/dL (<150)
[2024-11-03 14:25] LABS: Prostate Specific Antigen 1.3 ng/mL (< OR = 4.0)
== END 2024-11-03 08:57 | disposition home or self-care (01) ==
LOC: ANHGOSHLAB 08:58
PROVIDERS: PCP Internal Medicine; Visit Provider Nurse Practitioner
DX: E11.9 Type 2 diabetes mellitus without complications (principal); Z12.5 Encounter for screening for malignant neoplasm of prostate
CPT/HCPCS: 36415; 80053; 80061; 83036; 84153; 85025; G0103

== ENCOUNTER 2025-01-13 12:29 | Outpatient (CLI) | payer MEDICARE, SELFPAY ==
--- NOTE | 2025-01-13 12:46 | ECHO_ITS ---
Patient Info Name: Jhonny West Age: 74 years : 1950 Gender: Male Ht: 68 in Wt: 190 lbs BSA: 2.05 m2 HR: 61 bpm BP: 182 / 99 mmHg Technical Quality: Good Exam Date: 01/13/2025 12:48 PM Patient Status: O Admit Date: 01/13/2025 Exam Type: CA echo doppler color flow Complete two-dimensional, color flow and Doppler transthoracic echocardiogram is performed. Technical Research Scientist: Jd Victor III Ordering Physician: Noemí Ambrose Attending Provider: Noemí Ambrose Summary 1. Complete two-dimensional, color flow and Doppler transthoracic echocardiogram is performed. 2. Left ventricular chamber dimension is normal. 3. Left ventricular systolic function is normal, estimated at 60-65. 4. The left ventricular diastolic function is grade I diastolic dysfunction. 5. E/e' 14 is mildly elevated. 6. There is moderate aortic valve sclerosis. 7. The mitral valve has a mildly calcified annulus. 8. There is trace tricuspid valve regurgitation. 9. There is trace pulmonic regurgitation. Left Ventricle E/e' 14 is mildly elevated. Left ventricular chamber dimension is normal. Left ventricular systolic function is normal, estimated at 60-65. The left ventricular diastolic function is grade I diastolic dysfunction. Right Ventricle Right ventricular chamber dimension is normal. Right ventricular systolic function is normal. Left Atria Left atrial chamber dimension is normal. Right Atria Right atrial chamber dimension is normal. Aortic Valve The aortic valve is trileaflet. There is moderate aortic valve sclerosis. There is no aortic valve stenosis. There is no aortic valve regurgitation. Pulmonic Valve There is trace pulmonic regurgitation. Mitral Valve The mitral valve has a mildly calcified annulus. There is no mitral valve stenosis. There is no mitral valve regurgitation. Tricuspid Valve There is trace tricuspid valve regurgitation. RVSP is not measured due to an inadequate TR jet. Pericardium/Pleural There is no pericardial effusion. Inferior Vena Cava Normal inferior vena cava with >50% collapse upon inspiration consistent with normal right atrial pressure, 5 mmHg. Aorta The aortic root size at the sinus of Valsalva is normal. Left Ventricular Outflow Tract Name Value Normal LVOT 2D LVOT Diameter 2.2 cm LVOT Doppler LVOT Peak Velocity 124 cm/s LVOT Peak Gradient 6 mmHg LVOT Mean Gradient 3 mmHg LVOT VTI 26 cm LVOT VTI/AV VTI Ratio 0.9 LVOT Stroke Volume 96 ml LVOT CO 5.8 l/min LVOT CI 2.8 l/min/m2 Pulmonic Valve Name Value Normal PV Doppler PV Peak Velocity 90 cm/s PV Peak Gradient 3 mmHg PV Mean Gradient 2 mmHg Mitral Valve Name Value Normal MV Doppler MV Peak Gradient 4 mmHg MV Mean Gradient 1 mmHg MV Area (Cont Eq VTI) 3.5 cm2 MV Diastolic Function MV E Peak Velocity 72 cm/s MV A Peak Velocity 102 cm/s MV E/A 0.7 MV Decel Time (PW) 239 ms MV Annular TDI MV E/e' (Septal) 14.4 MV E/e' (Lateral) 14.5 MV E/e' (Average) 14.4 Tricuspid Valve Name Value Normal Estimated PAP/RSVP RA Pressure 5 mmHg <=5 TV Annular TDI TV Lateral Naila s' Velocity 11.1 cm/s >=9.5 Aortic Valve Name Value Normal AV Doppler AV Peak Velocity 141 cm/s AV Peak Gradient 8 mmHg AV Mean Gradient 4 mmHg AV VTI 29 cm AV Area (Cont Eq VTI) 3.3 cm2 >=3.0 AV Area (Cont Eq Vasile) 3.3 cm2 AV DI (Vasile) 0.88 AV Regurgitation 2D LVOT Area 3.7 cm2 Ventricles Name Value Normal LV Dimensions 2D/MM IVS Diastolic Thickness (2D) 0.9 cm 0.6-1.0 LVID Diastole (2D) 5.0 cm 4.2-5.8 LVIW Diastolic Thickness (2D) 1.1 cm 0.6-1.0 LVID Systole (2D) 3.4 cm 2.5-4.0 LVOT Diameter 2.2 cm LV Mass (2D Cubed) 184.05 g 88.00-224.00 LV Mass Index (2D Cubed) 90 g/m2 49-115 Relative Wall Thickness (2D) 0.44 <=0.42 LV Fractional Shortening/Ejection Fraction 2D/MM LV Fractional Shortening (2D) 31 % 25-43 LV EF (2D Teichholz) 59 % LV Diastolic Volume (4C MOD) 84 ml LV EF (4C MOD) 60 % LV Diastolic Volume (2C MOD) 81 ml LV EF (2C MOD) 61 % LV Diastolic Volume (BP MOD) 87 ml 62-150 LV Diastolic Volume Index (BP MOD) 42 ml/m2 34-74 LV Systolic Volume (BP MOD) 33 ml 21-61 LV Systolic Volume Index (BP MOD) 16 ml/m2 11-31 LV EF (BP MOD) 62 % 52-72 LV Diastolic Length (4C) 7.7 cm LV Systolic Length (4C) 6.6 cm LV Stroke Volume (4C MOD) 51 ml Atria Name Value Normal LA Dimensions LA Volume (4C A-L) 43 ml LA Volume (BP A-L) 57 ml RA Dimensions RA Systolic Major Penn Length (4C) 5.1 cm 2.1-2.7 RA Area (4C) 13.8 cm2 <=18.0 Report Signatures
== END 2025-01-13 12:30 | disposition home or self-care (01) ==
LOC: ANHCARD 12:30
PROVIDERS: PCP Nurse Practitioner; Visit Provider Nurse Practitioner
DX: R01.1 Cardiac murmur, unspecified (principal)
CPT/HCPCS: 93306